=== PATIENT | male | born 1965 | race Caucasian/White ===

== ENCOUNTER 2017-09-22 17:37 | Observation (INO) ==
[2017-09-22 18:54] LABS: Basophils # 0.1 10*3/uL (0.0-0.2); Basophils % 0.6 % (0.0-0.8); Eosinophils # 0.1 10*3/uL (0.0-0.87); Eosinophils % 0.5 % (0.00-10.9); Hematocrit 48.8 VOL% (42.0-52.0); Hemoglobin 15.6 GM/DL (14.0-18.0); Immature Granulocytes % 0.3 %; Immature Granulocytes Absolute 0.05 #; Lymphocytes # 0.9 10*3/uL (1.4-4.0); Lymphocytes % 6.2 % (21.2-54.2); Mean Corpuscular Hemoglobin 31 PG (27-34); Mean Corpuscular Volume 96.3 FL (87-102); Mean Platelet Volume 10.5 FL (9.6-12.0); Monocytes # 0.5 10*3/uL (0.11-0.8); Monocytes % 3.4 % (1.7-12.7); Neutrophils # 13.2 10*3/uL (1.4-7.4); Platelet Count 305 T/CUMM (130-400); Red Blood Count 5.07 MC/CUMM (3.8-5.5); Red Cell Distribution Width 13.6 % (9.3-17.3); White Blood Count 14.9 T/CUMM (4-12)
[2017-09-22 19:01] LABS: PT Patient Result 10.9 SECS
[2017-09-22] MEDS ORDERED: MORPHINE 2 MG/1 ML SYRINGE IV STA (19:03)
[2017-09-22] MEDS ORDERED: NITROGLYCERIN 2% OINT 1 INCH/GM PACK TOP STA (19:03)
[2017-09-22] MEDS ORDERED: ASPIRIN 325 MG TABLET PO STA (19:03)
[2017-09-22] MEDS ORDERED: METOPROLOL TARTRATE 25 MG TABLET PO STA (19:03)
[2017-09-22] MEDS ORDERED: ALUM/MAG/SIMETH/LIDO VISC 1:1 30 ML BOTTLE PO STA (19:03)
[2017-09-22] MEDS ORDERED: ONDANSETRON 4 MG/2 ML VIAL IV STA (19:03)
[2017-09-22] MEDS ORDERED: METOPROLOL TARTRATE 25 MG TABLET ONE (19:14)
[2017-09-22] MEDS ORDERED: ONDANSETRON 4 MG/2 ML VIAL ONE (19:14)
[2017-09-22] MEDS ORDERED: NITROGLYCERIN 2% OINT 1 INCH/GM PACK TOP ONE (19:14)
[2017-09-22] MEDS ORDERED: ASPIRIN 325 MG TABLET ONE (19:15)
[2017-09-22] MEDS ORDERED: ALUM/MAG/SIMETH/LIDO VISC 1:1 30 ML BOTTLE PO ONE (19:15)
[2017-09-22] MEDS ORDERED: MORPHINE 2 MG/1 ML SYRINGE ONE (19:15)
[2017-09-22 19:23] LABS: Albumin 4.2 G/DL (3.4-5.0); Bilirubin,Total 0.4 MG/DL (0.2-1.0); Calcium 9.9 MG/DL (8.5-10.1); Osmolality,Calculated 278.5 MOS/KG (273-304); Total Protein 7.8 G/DL (6.4-8.3)
[2017-09-22] MEDS ORDERED: ENOXAPARIN 100 MG/ML SYRINGE SUBCUT STA (21:17)
[2017-09-22] MEDS ORDERED: ENOXAPARIN 80 MG/0.8 ML SYRINGE SUBCUT ONE (21:58)
[2017-09-22] MEDS ORDERED: clonazePAM 0.5 MG TABLET PO PRN (22:05)
[2017-09-22] MEDS ORDERED: ONDANSETRON 4 MG/2 ML VIAL IV PRN (22:07)
[2017-09-22] MEDS ORDERED: MORPHINE 2 MG/1 ML SYRINGE IV PRN (22:07)
[2017-09-22] MEDS ORDERED: GABAPENTIN 300 MG CAPSULE PO SCH (22:30)
[2017-09-22] MEDS ORDERED: rOPINIRole 1 MG TABLET PO SCH (22:30)
[2017-09-22] MEDS ORDERED: ENOXAPARIN 40 MG/0.4 ML SYRINGE SUBCUT SCH (22:30)
[2017-09-22] MEDS ORDERED: FAMOTIDINE 20 MG TABLET PO SCH (23:00)
[2017-09-23 01:26] LABS: Basophils % 0.2 % (0.0-0.8); Hematocrit 45.2 VOL% (42.0-52.0); Hemoglobin 14.8 GM/DL (14.0-18.0); Immature Granulocytes % 1.1 %; Immature Granulocytes Absolute 0.15 #; Lymphocytes # 0.9 10*3/uL (1.4-4.0); Lymphocytes % 6.5 % (21.2-54.2); Mean Corpuscular HGB Conc 32.7 GM/DL (32-36); Mean Corpuscular Hemoglobin 31 PG (27-34); Mean Corpuscular Volume 94.2 FL (87-102); Mean Platelet Volume 10.9 FL (9.6-12.0); Monocytes # 0.2 10*3/uL (0.11-0.8); Monocytes % 1.1 % (1.7-12.7); Neutrophils # 11.9 10*3/uL (1.4-7.4); Neutrophils % 91.1 % (38.7-73.9); Platelet Count 336 T/CUMM (130-400); Red Cell Distribution Width 13.6 % (9.3-17.3); White Blood Count 13.1 T/CUMM (4-12)
[2017-09-23 01:51] LABS: Calcium 9.4 MG/DL (8.5-10.1); Osmolality,Calculated 287.3 MOS/KG (273-304); Potassium 4.8 MMOL/L (3.5-5.1); Risk Ratio 3.26; Thyroid Stimulating Hormone 0.735 uIU/ml (0.358-3.74); VLDL CHOLESTEROL 11.8 MG/DL
[2017-09-23 02:34] LABS: Band Neutrophils 8 % (0-10); Lymphocytes 8 % (20-55); Segmented Neutrophils 82 % (50-85); Total Cells Counted 100
[2017-09-23] MEDS ORDERED: LEVOTHYROXINE 25 MCG TABLET PO SCH (06:00)
[2017-09-23] MEDS ORDERED: PANTOPRAZOLE 40 MG TABLET PO SCH (09:00)
[2017-09-23] MEDS ORDERED: LISINOPRIL/HCTZ 20-25 MG TABLET PO SCH (09:00)
[2017-09-23] MEDS ORDERED: MAGNESIUM SULF RIDER 2 GM in PREMIX 1 EACH IV PRN (11:09)
[2017-09-23] MEDS ORDERED: DIAZEPAM 5 MG TABLET PO ONE (11:09)
[2017-09-23] MEDS ORDERED: POTASSIUM CHLORIDE RIDER 10 MEQ in PREMIX 1 EACH IV PRN (11:09)
[2017-09-23] MEDS ORDERED: diphenhydrAMINE CAP 25 MG CAPSULE PO ONE (11:09)
[2017-09-23] MEDS ORDERED: SODIUM CHLORIDE 0.45% 1,000 ML IV SCH (11:30)
[2017-09-23] MEDS ORDERED: HEPARIN/NACL 0.9% 2 UNITS/ML 2,000 ML IV ONE (11:31)
[2017-09-23] MEDS ORDERED: LIDOCAINE 2%/EPI 20 ML VIAL ONE (11:31)
[2017-09-23] MEDS ORDERED: LIDOCAINE 1% 20 ML VIAL ONE (11:45)
[2017-09-23] MEDS ORDERED: NITROGLYCERIN DRIP 50 MG/250 ML BOTTLE IV ONE (11:45)
[2017-09-23] MEDS ORDERED: VERAPAMIL 5 MG/2 ML VIAL ONE (11:46)
[2017-09-23] MEDS ORDERED: MIDAZOLAM 2 MG/2 ML VIAL ONE (12:45)
[2017-09-23] MEDS ORDERED: fentaNYL 100 MCG/2 ML VIAL ONE (12:45)
[2017-09-23] MEDS ORDERED: ENOXAPARIN 60 MG/0.6 ML SYRINGE ONE (12:53)
[2017-09-23 18:39] VITALS: BP 104/60
[2017-09-23] MEDS ORDERED: ROSUVASTATIN 10 MG TABLET PO SCH (21:00)
[2017-09-23] MEDS ORDERED: ENOXAPARIN 40 MG/0.4 ML SYRINGE SUBCUT SCH (22:00)
== END 2017-09-23 18:15 | disposition home or self-care (01) ==
LOC: N.EDINP 17:37 → N.ED 17:37 → N.5E 22:23
PROVIDERS: ADMIT Internal Medicine; ATTEND Internal Medicine
PROC: CLCCHCL (ICD-10-PCS; 2017-09-23 13:45)

== ENCOUNTER 2018-12-27 17:11 | Inpatient (IN) ==
[2018-12-27 21:10] LABS: Basophils # 0.1 10*3/uL (0.0-0.2); Basophils % 0.7 % (0.0-0.8); Eosinophils % 0.2 % (0.00-10.9); Hematocrit 47.3 VOL% (42.0-52.0); Hemoglobin 14.6 GM/DL (14.0-18.0); Immature Granulocytes % 0.5 %; Immature Granulocytes Absolute 0.06 #; Lymphocytes # 1.3 10*3/uL (1.4-4.0); Lymphocytes % 11.1 % (21.2-54.2); Mean Corpuscular HGB Conc 30.9 GM/DL (32-36); Mean Corpuscular Hemoglobin 31 PG (27-34); Mean Corpuscular Volume 99.6 FL (87-102); Mean Platelet Volume 10.1 FL (9.6-12.0); Monocytes # 1.7 10*3/uL (0.11-0.8); Neutrophils # 8.7 10*3/uL (1.4-7.4); Neutrophils % 73.5 % (38.7-73.9); Platelet Count 270 T/CUMM (130-400); Red Blood Count 4.75 MC/CUMM (3.8-5.5); Red Cell Distribution Width 14.1 % (9.3-17.3); White Blood Count 11.8 T/CUMM (4-12)
[2018-12-27 21:24] LABS: INR 1.1; PT Patient Result 11.8 SECS; Partial Thromboplastin Time 26.2 SECS (0-40)
[2018-12-27 21:32] LABS: Albumin 3.3 G/DL (3.4-5.0); Bilirubin,Total 0.6 MG/DL (0.2-1.0); Osmolality,Calculated 276.7 MOS/KG (273-304); Potassium 3.9 MMOL/L (3.5-5.1); Total Protein 7.6 G/DL (6.4-8.3)
[2018-12-27] MEDS ORDERED: HEPARIN 5,000 UNIT/1 ML VIAL IV ONE (21:46)
[2018-12-27] MEDS ORDERED: MORPHINE 4 MG/1 ML VIAL IV STA (21:50)
[2018-12-27] MEDS ORDERED: ONDANSETRON 4 MG/2 ML VIAL IV STA (22:01)
[2018-12-27] MEDS ORDERED: ONDANSETRON 4 MG/2 ML VIAL ONE (22:05)
[2018-12-27] MEDS ORDERED: ZALEPLON 5 MG CAPSULE PO PRN (22:25)
[2018-12-27] MEDS ORDERED: DOCUSATE SODIUM 100 MG CAPSULE PO PRN (22:25)
[2018-12-27] MEDS ORDERED: ALBUTEROL 2.5 MG/3 ML NEB RESP TX PRN (22:25)
[2018-12-27] MEDS: SODIUM CHLORIDE 0.9% 1,000 ML IV SCH (22:56)
[2018-12-27] MEDS: HEPARIN DRIP 25,000 UNITS/500 ML PREMIX IV SCH (22:57)
[2018-12-27] MEDS: ACETAMINOPHEN 325 MG TABLET PO PRN (23:18)
[2018-12-28] MEDS: MORPHINE 4 MG/1 ML VIAL IV SCH ×6 (02:58→19:41)
[2018-12-28] MEDS ORDERED: clonazePAM 0.5 MG TABLET PO PRN (03:38)
[2018-12-28 05:20] LABS: Basophils # 0.1 10*3/uL (0.0-0.2); Basophils % 0.7 % (0.0-0.8); Eosinophils # 0.1 10*3/uL (0.0-0.87); Eosinophils % 0.7 % (0.00-10.9); Hematocrit 43.5 VOL% (42.0-52.0); Hemoglobin 13.3 GM/DL (14.0-18.0); Immature Granulocytes % 0.5 %; Immature Granulocytes Absolute 0.05 #; Lymphocytes # 2.3 10*3/uL (1.4-4.0); Lymphocytes % 21.2 % (21.2-54.2); Mean Corpuscular HGB Conc 30.6 GM/DL (32-36); Mean Corpuscular Hemoglobin 30 PG (27-34); Mean Corpuscular Volume 98.6 FL (87-102); Mean Platelet Volume 11.6 FL (9.6-12.0); Monocytes # 1.9 10*3/uL (0.11-0.8); Monocytes % 17.9 % (1.7-12.7); Neutrophils # 6.3 10*3/uL (1.4-7.4); Platelet Count 230 T/CUMM (130-400); Red Blood Count 4.41 MC/CUMM (3.8-5.5); Red Cell Distribution Width 14.1 % (9.3-17.3); White Blood Count 10.6 T/CUMM (4-12)
[2018-12-28 05:41] LABS: Calcium 8.4 MG/DL (8.5-10.1); Osmolality,Calculated 277.5 MOS/KG (273-304); Potassium 3.7 MMOL/L (3.5-5.1)
[2018-12-28 05:46] LABS: Hypochromasia Slight; Lymphocytes 24 % (20-55); Platelet Estimate Normal; Segmented Neutrophils 69 % (50-85); Total Cells Counted 100
[2018-12-28] MEDS ORDERED: RABEPRAZOLE SODIUM 20 MG PO SCH (09:00)
[2018-12-28] MEDS: PANTOPRAZOLE 40 MG TABLET PO SCH (09:30)
[2018-12-28] MEDS: LEVOTHYROXINE 25 MCG TABLET PO SCH (09:30)
[2018-12-28] MEDS: SODIUM CHLORIDE 0.9% 1,000 ML IV SCH (12:15)
[2018-12-28] MEDS: ONDANSETRON 4 MG/2 ML VIAL IV PRN ×2 (13:51→22:45)
[2018-12-28] MEDS: HEPARIN DRIP 25,000 UNITS/500 ML PREMIX IV SCH ×2 (16:56→22:46)
[2018-12-28] MEDS: QUEtiapine 25 MG TABLET PO SCH (20:39)
[2018-12-28] MEDS: GABAPENTIN 300 MG CAPSULE PO SCH (20:39)
[2018-12-28] MEDS: rOPINIRole 1 MG TABLET PO SCH (20:39)
[2018-12-29] MEDS: MORPHINE 4 MG/1 ML VIAL IV SCH ×6 (00:05→20:01)
[2018-12-29] MEDS: SODIUM CHLORIDE 0.9% 1,000 ML IV SCH ×2 (01:41→15:00)
[2018-12-29] MEDS: ONDANSETRON 4 MG/2 ML VIAL IV PRN ×5 (04:12→20:01)
[2018-12-29 04:34] LABS: Calcium 7.7 MG/DL (8.5-10.1); Osmolality,Calculated 279.4 MOS/KG (273-304); Potassium 3.9 MMOL/L (3.5-5.1)
[2018-12-29] MEDS: LEVOTHYROXINE 25 MCG TABLET PO SCH (06:21)
[2018-12-29] MEDS: PANTOPRAZOLE 40 MG TABLET PO SCH (09:28)
[2018-12-29] MEDS: HEPARIN DRIP 25,000 UNITS/500 ML PREMIX IV SCH (09:31)
[2018-12-29] MEDS ORDERED: MIDAZOLAM 2 MG/2 ML VIAL IV ONE (12:00)
[2018-12-29] MEDS ORDERED: fentaNYL 100 MCG/2 ML VIAL IV ONE (12:00)
[2018-12-29] MEDS: ACETAMINOPHEN 325 MG TABLET PO PRN (12:17)
[2018-12-29] MEDS ORDERED: DIAZEPAM 5 MG TABLET PO ONE (13:55)
[2018-12-29] MEDS ORDERED: fentaNYL 100 MCG/2 ML VIAL ONE (14:33)
[2018-12-29] MEDS ORDERED: MIDAZOLAM 2 MG/2 ML VIAL ONE ×2 (14:34→16:06)
[2018-12-29] MEDS ORDERED: ALTEPLASE 2 MG VIAL ONE ×2 (14:41→15:03)
[2018-12-29] MEDS ORDERED: HEPARIN 5,000 UNIT/1 ML VIAL ONE ×2 (14:41→15:47)
[2018-12-29] MEDS ORDERED: VANCOMYCIN 500 MG VIAL ONE (15:08)
[2018-12-29] MEDS ORDERED: VANCOMYCIN INJ 500 MG in SODIUM CHLORIDE 0.9% 100 ML IV ONE ×2 (15:26→16:00)
[2018-12-29] MEDS ORDERED: HEPARIN/NACL 0.9% 2 UNITS/ML 1,000 ML IV ONE (15:41)
[2018-12-29] MEDS ORDERED: diphenhydrAMINE 50 MG/1 ML VIAL ONE (16:06)
[2018-12-29] MEDS ORDERED: diphenhydrAMINE 50 MG/1 ML VIAL IV ONE (16:08)
[2018-12-29] MEDS: ENOXAPARIN 80 MG/0.8 ML SYRINGE SUBCUT SCH (18:05)
[2018-12-29] MEDS: GABAPENTIN 300 MG CAPSULE PO SCH (20:02)
[2018-12-29] MEDS: QUEtiapine 25 MG TABLET PO SCH (20:03)
[2018-12-29] MEDS: rOPINIRole 1 MG TABLET PO SCH (20:03)
[2018-12-30] MEDS: ONDANSETRON 4 MG/2 ML VIAL IV PRN ×4 (00:05→12:43)
[2018-12-30] MEDS: MORPHINE 4 MG/1 ML VIAL IV SCH ×4 (00:05→12:40)
[2018-12-30] MEDS: SODIUM CHLORIDE 0.9% 1,000 ML IV SCH (03:44)
[2018-12-30] MEDS: LEVOTHYROXINE 25 MCG TABLET PO SCH (05:59)
[2018-12-30] MEDS: ENOXAPARIN 80 MG/0.8 ML SYRINGE SUBCUT SCH (05:59)
[2018-12-30] MEDS: PANTOPRAZOLE 40 MG TABLET PO SCH (08:37)
[2018-12-30] MEDS ORDERED: ASPIRIN EC 81 MG TABLET PO SCH (09:00)
[2018-12-30] MEDS ORDERED: CLOPIDOGREL 75 MG TABLET PO SCH (09:00)
[2018-12-30 11:18] VITALS: BP 127/88
[2018-12-31 16:57] LABS: F5DNA Reviewed By SEE COMMENTS; Factor V Leiden (R506Q) Mutati Negative (Negative)
== END 2018-12-30 13:30 | disposition home or self-care (01) | DRG 271 ==
LOC: N.ED 17:11 → N.EDINP 22:21 → N.CC 22:40
PROVIDERS: ADMIT Internal Medicine Geriatric Medicine; ATTEND Internal Medicine Geriatric Medicine